=== PATIENT | female | born 1995 | race Caucasian/White ===

== ENCOUNTER → 2022-10-31 | Outpatient (CLI) | payer OTHER, SELFPAY ==
[2022-11-07 16:19] LABS: HPV Reflexed? NOT INDICATED
== END | disposition home or self-care (01) ==
PROVIDERS: PCP Internal Medicine; Visit Provider Obstetrics & Gynecology
DX: Z12.4 Encounter for screening for malignant neoplasm of cervix (principal)
CPT/HCPCS: 88175; G0145

== ENCOUNTER → 2025-07-17 | Outpatient (CLI) | payer OTHER, SELFPAY ==
[2025-07-17 12:49] LABS: Free T3 3.1 pg/mL (2.18-3.98); Vitamin B12 672 pg/mL (180-914); Vitamin D,25 Hydroxy 52.5 ng/mL (30-100)
[2025-07-17 12:50] LABS: CRP < 3.00 mg/L (0.0-3.0)
[2025-07-18 16:09] LABS: ANTINUCLEAR ANTIBODIES DIRECT Negative (Negative)
[2025-07-18 17:08] LABS: Thyroxin Bind Glob (TBG) 23 ug/mL (13-39)
== END | disposition home or self-care (01) ==
LOC: MTLAB 10:17
PROVIDERS: PCP Internal Medicine; Referring Provider Nurse Practitioner Family; Visit Provider Nurse Practitioner Family
DX: R53.83 Other fatigue (principal)
CPT/HCPCS: 36415; 82306; 82607; 83036; 83695; 84439; 84442; 84481; 85652; 86038; 86140; 86225; 86431